=== PATIENT | female | born 2000 | race Caucasian/White ===

== ENCOUNTER 2024-07-17 17:08 | Observation (INO) | payer MEDICAID, OTHER ==
[~2024-07-17] VITALS: Ht 165.1 cm; Wt 72.6 kg
[2024-07-17 19:11] LABS: Basophils # (auto) 0.1 10 ^3/uL (0-0.2); Basophils % (auto) 0.6 % (0.0-2.0); Eosinophils # (auto) 0.3 10 ^3/uL (0-0.8); Eosinophils % (auto) 2.5 % (0.0-7.0); Hematocrit 34.4 % (36.0-46.0); Lymphocytes # (auto) 2.7 10 ^3/uL (0.4-5.4); Lymphocytes % (auto) 25.3 % (10.0-50.0); Monocytes # (auto) 0.9 10 ^3/uL (0-1.3); Monocytes % (auto) 8.8 % (0.0-12.0); Neutrophils # (auto) 6.6 10 ^3/uL (1.6-8.6); Neutrophils % (auto) 62.8 % (37.0-80.0); Nucleated Red Blood Cells % 0.1 %; Platelet Count (auto) 309 10^3/uL (140-450); Red Blood Cells 4.41 10^6/uL (4.0-5.20); Red Cell Distribution Width 14.9 % (11.8-14.3); White Blood Cell 10.5 10^3/uL (4.4-10.8)
[2024-07-17 19:35] LABS: Albumin 3.7 g/dL (3.2-4.8); Alkaline Phosphatase 75 U/L (46-116); Amylase 46 U/L (30-118); Anion Gap 11 (5-15); Aspartate Aminotransferase < 8 U/L (13-40); BUN/Creatinine Ratio 9.6 (10.0-20.0); Bilirubin, Total 0.2 mg/dL (0.2-1.0); Blood Urea Nitrogen 7 mg/dL (9-23); Calcium 9.6 mg/dL (8.7-10.4); Carbon Dioxide 21 mmol/L (20-31); Chloride 108 mmol/L (98-107); Glucose 89 mg/dL (74-106); Lipase 50 U/L (12-53); Potassium 4.8 mmol/L (3.5-5.1); Sodium 140 mmol/L (136-145); Total Protein 6.5 g/dL (5.7-8.2)
[2024-07-17 19:36] LABS: Alanine Aminotransferase < 9 U/L (7-40)
--- NOTE | 2024-07-17 19:55 | DVH ---
EXAM: US GALLBLADDER CLINICAL HISTORY: Abdominal Pain TECHNIQUE: Grayscale and limited color flow doppler ultrasound of the right upper quadrant is perfor med. COMPARISON: None Findings: Liver measures 14.3 cm in length with normal echotexture and contour. No evidence of focal hepatic le sions or intra- or extrahepatic ductal dilatation. Common bile duct measures 0.2 cm in diameter. Norm al hepatopedal flow noted within the portal vein. No perihepatic free fluid is noted. Gallbladder appears within normal limits with gallbladder wall thickness measuring 0.1 cm. There are shadowing calculi. No evidence of biliary sludge or pericholecystic fluid. Negative sonographic Greg y's sign. Pancreas only partially visualized due to overlying bowel gas but is otherwise unremarkable. Right kidney measures 11.3 cm with normal contours, echotexture and cortical thickness. No evidence o f hydronephrosis, calculi, cystic or solid renal lesions. Partially visualized inferior vena cava unremarkable. Impression: 1. No evidence of acute right upper quadrant abnormalities. 2. Cholelithiasis without evidence of acute cholecystitis.
--- NOTE | 2024-07-17 19:59 | DVH ---
EXAM: US OB ULTRASOUND COMP GTR 14 WKS CLINICAL HISTORY: Abdominal Pain No records COMPARISON: None TECHNIQUE: Grayscale, color-flow Doppler, and spectral Doppler ultrasound of the pelvis is performed by transabdominal technique. Findings: Single live intrauterine in breech presentation with heart rate of 147 bpm. Cervical os appears closed and measures 4.1 cm in length. Placenta is posterior in location without evidence o f previa or abruption. Limited evaluation of anatomy Estimated gestational age 25 weeks 5 days based on parameters which include biparietal diameter 6.3 cm, head circumference 23.8 cm, abdominal circumference 21.0 cm, and femur length 4.[address] ratios within normal limits. Estimated weight 840.5 g (1 lb 14 oz). Impression: 1. Single live intrauterine in breech presentation with heart rate of 147 bpm. 2. Estimated gestational age 25 weeks 5 days with estimated date of confinement 10/25/2024.
--- NOTE | 2024-07-19 11:15 | DVHDS2 ---
Physician Discharge Progress N Final Diagnosis: abd pain Operations or Procedures: Operations or Procedures nst,sono Condition on Discharge: Good Disposition: Home Discharge Instructions: Diet: Regular Activity: No Restrictions, As Tolerated Medications: na Follow Up Care: Specialist: 2d Discharge Statement: "Patient was advised to return to the ER or call 911 if any headaches, dizziness, shortness of breath, chest pain, abdominal pain, bleeding, fevers, or worsening of medical condition. Patient was counseled about treatment plan, medications, possible side effects, patientverbalized understanding. All questions were answered to the best of my ability. This discharge took greater then 30 minutes in planning, reviewing documentation, counseling the patient, and discussing with other team members." SEBASTIAN WOODRUFF DO Jul 19, 2024 11:15
== END 2024-07-17 20:33 | disposition home or self-care (01) ==
LOC: LDRP 17:08
PROVIDERS: ADMIT Obstetrics & Gynecology; ATTEND Obstetrics & Gynecology
DX: O26.892 Other specified pregnancy related conditions, second trimester (principal); R10.10 Upper abdominal pain, unspecified; Z3A.26 26 weeks gestation of pregnancy; Z79.899 Other long term (current) drug therapy
CPT/HCPCS: 36415; 59025; 76705; 76805; 80053; 81002; 82150; 83690; 85025; 94760; G0378

== ENCOUNTER 2024-10-04 11:22 | Observation (INO) | payer MEDICAID ==
[~2024-10-04] VITALS: Ht 170.2 cm; Wt 71.7 kg
--- NOTE | 2024-10-04 15:14 | DVHDS2 ---
Physician Discharge Progress N Final Diagnosis: nuchal cord,labor check cramping Operations or Procedures: Operations or Procedures nst,sono 37wks Commentary: Commentary pt seen by sanjuanita Condition on Discharge: Good Disposition: Home Discharge Instructions: Diet: Regular Activity: Light activity Medications: na Follow Up Care: Specialist: 1w Discharge Statement: "Patient was advised to return to the ER or call 911 if any headaches, dizziness, shortness of breath, chest pain, abdominal pain, bleeding, fevers, or worsening of medical condition. Patient was counseled about treatment plan, medications, possible side effects, patientverbalized understanding. All questions were answered to the best of my ability. This discharge took greater then 30 minutes in planning, reviewing documentation, counseling the patient, and discussing with other team members." Visit Coding OBGYN Date of Service: Oct 04, 2024 Billing Provider: SEBASTIAN WOODRUFF DO STEAM STATION SUPERVISOR Common Visit Codes: 24253-JCY/OBS SAME DATE (HIGH) STEAM STATION SUPERVISOR Consultation Codes: [id number] CONSULT <80MIN STEAM STATION SUPERVISOR Procedure Codes: 38114-54- NON-STRESS TEST SEBASTIAN WOODRUFF DO Oct 04, 2024 15:14
== END 2024-10-04 13:33 | disposition home or self-care (01) ==
LOC: LDRP 11:22
PROVIDERS: ADMIT Obstetrics & Gynecology; ATTEND Obstetrics & Gynecology
DX: O69.81X0 Labor and delivery complicated by cord around neck, without compression, not applicable or unspecified (principal); O62.9 Abnormality of forces of labor, unspecified; Z98.890 Other specified postprocedural states; Z79.899 Other long term (current) drug therapy; Z3A.37 37 weeks gestation of pregnancy
CPT/HCPCS: 59025; 81002; 94760; G0378

== ENCOUNTER 2024-10-09 17:58 | Inpatient (IN) | payer MEDICAID ==
[~2024-10-09] VITALS: Ht 165.1 cm; Wt 72.6 kg
--- NOTE | 2024-10-09 21:19 | DVH ---
LIMITED OB ULTRASOUND > 14 WKS: HISTORY: CHRIS, EFW, presentation TECHNIQUE: Multiple real-time grayscale images of the gravid uterus with duplex Doppler color flow an d M-mode spectral analysis. TRANSDUCER: C1-6 COMPARISON: US OB ULTRASOUND COMP GTR 14 WKS on DOS: 07/17/24 FINDINGS: IUP single live fetus at 37 weeks, 1 day based on composite averages of the BPD, head circumference, abdominal circumference and femur length Estimated weight 3120 grams heart rate 163 beats per minute CHRIS 10.83 cm Cervix was not assessed. Cephalic Presentation Unremarkable posterior Placenta without previa or abruption. Single nuchal cord is seen. IMPRESSION: 1. IUP single live fetus at 37 weeks, 1 day AUA corresponding to an [place] of October 29, 2024 2. No acute findings identified.
[2024-10-09] MEDS ORDERED: NALBUPHINE HCL 10 MG/1ml INJECTION IV PRN (22:15)
--- NOTE | 2024-10-09 22:20 | DVHHP2 ---
OB CC & HPI Date Date of Admission: Oct 09, 2024 Patient Identification: : 3 Para: 1 EGA: 38.2 Chief Complaints: Reason for admission: induction of labor, rupture of membranes History of Present Complaints 24y IUP 38.2 wk by stated EDC. Endorse painless leakage of clear, odorless since 10 am today. Had big gush of clear fluid 1 hr before admission Mild contractions only. Denies vaginal bleeding Reports good PNL care, uncomplicated. GBS neg. Amnisure test POSITIVE Past Medical History Cardiac: No pertinent Hx Pulmonary: No pertinent Hx Central Nervous System: No pertinent Hx GI: No pertinent Hx Hemotology/Oncology: No pertinent Hx Hepatobiliary: No pertinent Hx Psychiatric: No pertinent Hx Musculoskeletal: No pertinent Hx Rheumotologic: No pertinent Hx Infectious Disease: No peritnent Hx ENT: No pertinent Hx Renal/: No pertinent Hx Endocrine: No pertinent Hx Dermatology: No pertinent Hx Past Surgical History: No pertinent Hx OB History OB History Care: Good Care Ultrasounds: Normal mid trimester US Obstetrical Complications: None Allergies: Coded Allergies: NO KNOWN ALLERGIES (Unverified , 07/17/24) Home Meds No Active Prescriptions or Reported Meds Family & Social History Family/Social History RPR/VDRL: Negative GBS Status: Negative HBsAG: Negative Review of Systems Constitutional: No symptom reported Ears, Nose, & Throat: No symptom reported Eyes: No symptom reported Pulmonary/Respiratory: No symptom reported Cardiovascular: No symptom reported Gastrointestinal: No symptom reported Genitourinary: No symptom reported Musculoskeletal: No symptom reported Skin: No symptom reported Psychiatric: No symptom reported Endocrine: No symptom reported Hemotologic/Lymphatic: No symptom reported OB Admission Exam Physical Exam HEENT: NCAT Heart: Rhythm Normal Lungs: Clear Abdomen: Gravid Extremities: Normal Reflexes: Normal Pelvic Exam: RN exam FT/Thick/Post VTX by US EFW by US 3100 gm. CHRIS 10cm Heart Rate: 130's Accelerations: Accelerations Present Decelerations: No Decelerations Short Term Variability: Present Director Of Product Marketing Variability: Average (6-25) Contractions on Admission: 6-10 Minutes Apart Intensity: Mild OB Plan Plan Admitting Diagnosis: Term IUP 38+ wk, Early Term Premature rupture of membranes (PROM) GBS negative Category 1 FHR Tracing Plan: Induction Induction Methd: Misoprostol protocol Other Plan: Admit for labor induction due to PROM confirmed by AMNISURE test positive and by history PO Cytotec per protocol Informed consent obtained. Visit Coding OBGYN Date of Service: Oct 09, 2024 Billing Provider: CLARK CABELLO DO ACQUISITION MARKETING COORDINATOR Common Visit Codes: 71249-[id number] OBS CARE (HIGH) CLARK CABELLO DO Oct 09, 2024 22:20
[2024-10-09 23:34] LABS: Alanine Aminotransferase 10 U/L (7-40); Albumin 3.5 g/dL (3.2-4.8); Anion Gap 9 (5-15); Aspartate Aminotransferase 15 U/L (13-40); BUN/Creatinine Ratio 13.5 (10.0-20.0); Calcium 9.1 mg/dL (8.7-10.4); Glucose 81 mg/dL (74-106); Potassium 3.7 mmol/L (3.5-5.1); Sodium 137 mmol/L (136-145)
[2024-10-09] MEDS: miSOPROStol 50 MCG per PRE-CUT 1/2 TAB PO PRN (23:34)
[2024-10-09 23:35] LABS: Basophils # (auto) 0.1 10 ^3/uL (0-0.2); Eosinophils # (auto) 0.2 10 ^3/uL (0-0.8); Eosinophils % (auto) 1.9 % (0.0-7.0); Hematocrit 34.6 % (36.0-46.0); Hemoglobin 10.9 g/dL (12.2-16.2); Lymphocytes # (auto) 3.9 10 ^3/uL (0.4-5.4); Lymphocytes % (auto) 31.8 % (10.0-50.0); Mean Corpuscular Hemoglobin 23.4 pg (28.0-32.0); Mean Corpuscular Hgb Conc. 31.4 g/dL (32.0-36.0); Mean Corpuscular Volume 74.3 fL (80.0-100.0); Monocytes % (auto) 7.8 % (0.0-12.0); Neutrophils # (auto) 7.1 10 ^3/uL (1.6-8.6); Neutrophils % (auto) 57.5 % (37.0-80.0); Nucleated Red Blood Cells % 0.2 %; Platelet Count (auto) 329 10^3/uL (140-450); Red Blood Cells 4.65 10^6/uL (4.0-5.20); Red Cell Distribution Width 22.5 % (11.8-14.3); Total Protein 6.2 g/dL (5.7-8.2); White Blood Cell 12.3 10^3/uL (4.4-10.8)
[2024-10-09 23:36] LABS: Alkaline Phosphatase 161 U/L (46-116); Bilirubin, Total 0.2 mg/dL (0.2-1.0); Blood Urea Nitrogen 7 mg/dL (9-23); Carbon Dioxide 20 mmol/L (20-31); Chloride 108 mmol/L (98-107)
[2024-10-09 23:39] LABS: INR 0.92 (0.9-1.15); Partial Thromboplastin Time 26.5 SEC (24.5-34.5); Prothrombin Time 9.8 sec (9.3-11.8)
[2024-10-09 23:48] LABS: Platelet Estimate Adequate
[2024-10-09 23:49] LABS: Anisocytosis Slight; Hypochromia Moderate; Large Platelets FEW
[2024-10-10 01:51] LABS: Urine Amorphous Crystal FEW /hpf (None Seen); Urine Bacteria FEW /hpf (None Seen); Urine Blood Negative /uL (Negative); Urine Clarity Turbid (Clear); Urine Color Colorless (Yellow); Urine Mucus FEW (None Seen); Urine Protein, UAD Negative (Negative); Urine Specific Gravity 1.015 (1.001-1.035); Urine Squamous Epithelial Cell MOD /hpf (<5); Urine Urobilinogen Normal (Negative); Urine WBC 25 /HPF (0-5)
[2024-10-10 02:04] LABS: Amphetamine Screen, Urine Neg (NEGATIVE); Barbiturate Scree,Urine Neg (NEGATIVE); Benzodiazephine Screen, Urine Neg (NEGATIVE); Cannabinoid Screen, Urine Neg (NEGATIVE); Cocaine Screen, Urine Neg (NEGATIVE); Opiate Scree,Urine Neg (NEGATIVE); Phencyclidine Screen, Urine Neg (NEGATIVE)
[2024-10-10] MEDS: LACTATED RINGER'S 1,000 ML IV SCH (03:43)
--- NOTE | 2024-10-10 05:29 | DVHPN2 ---
OB Labor Progress Note Date and Time Seen Date Seen: Oct 10, 2024 Time Seen: 05:27 Subjective Patient reports: No new complaints Objective Vital Signs Afeb VS stable Monitoring Method Monitoring Method: External Heart Rate Heart Rate Baseline: 130 Heart Rate Variability: Moderate Presence of FHR Accelerations: Yes Presence of FHR Decelerations: Yes Contractions Contractions Frequency: Occasional Contractions Intensity: Mild Membranes Membranes: Ruptured Amniotic Fluid Color: Clear Vaginal Exam Vag Exam Deferred: Yes Medications Medications - Pitocin: No Medication - Epidural: No Lab Results Lab Results Current Medications Medications (Trade) Dose Ordered Sig/Carter Start Time Stop Time Status Last Admin Dose Admin Lactated Ringer's 1,000 ml @ 125 mls/hr Q8H 10/09/24 22:15 10/10/24 05:19 125 MLS/HR Nalbuphine HCl (Nubain) 10 mg Q4HP PRN 10/09/24 22:15 Witch Macrina (Tucks) 1 pad PRN PRN 10/09/24 22:15 Sodium Lauryl Sulfate (Phisoderm) 240 ml PRN PRN 10/09/24 22:15 Benzocaine (Dermoplast) 1 applic PRN PRN 10/09/24 22:15 Misoprostol (Cytotec) 50 mcg Q4HPRN PRN 10/09/24 22:15 10/10/24 03:40 50 MCG Lidocaine HCl (Xylocaine) 20 ml ONCE PRN 10/09/24 22:15 Laboratory Tests Test 10/09/24 23:35 10/09/24 22:27 10/09/24 19:35 Range/Units Urine Color Colorless Yellow Urine Clarity Turbid H Clear Urine pH 7.0 5.0-9.0 Urine Specific [place] 1.015 1.001-1.035 Urine Protein Negative Negative Urine Ketones Negative Negative Urine Blood Negative Negative /uL Urine Nitrite Negative Negative Urine Bilirubin Negative Negative Urine Urobilinogen Normal Negative mg/dL Urine Leukocyte Esterase 3+ Negative /uL Urine RBC 2 0 - 4 /hpf Urine Microscopic WBC 25 H 0-5 /HPF Urine Squamous Epithelial Cells Mod <5 /hpf Urine Amorphous Crystals Few None Seen /hpf Urine Bacteria Few H None Seen /hpf Urine Mucus Few None Seen Urine Glucose Normal Normal mg/dL Urine Opiates Screen Neg NEGATIVE Urine Fentanyl Screen Neg NEGATIVE Urine Barbiturates Screen Neg NEGATIVE Urine Phencyclidine Screen Neg NEGATIVE Urine Amphetamines Screen Neg NEGATIVE Urine Benzodiazepines Screen Neg NEGATIVE Urine Cocaine Screen Neg NEGATIVE Urine Cannabinoids Screen Neg NEGATIVE White Blood Count 12.3 H 4.4-10.8 10^3/uL Red Blood Count 4.65 4.0-5.20 10^6/uL Hemoglobin 10.9 L 12.2-16.2 g/dL Hematocrit 34.6 L 36.0-46.0 % Mean Corpuscular Volume 74.3 L 80.0-100.0 fL Mean Corpuscular Hemoglobin 23.4 L 28.0-32.0 pg Mean Corpuscular Hemoglobin Concent 31.4 L 32.0-36.0 g/dL Red Cell Distribution Width 22.5 H 11.8-14.3 % Platelet Count 329 140-450 10^3/uL Mean Platelet Volume 8.4 6.9-10.8 fL Neutrophils (%) (Auto) 57.5 37.0-80.0 % Lymphocytes (%) (Auto) 31.8 10.0-50.0 % Monocytes (%) (Auto) 7.8 0.0-12.0 % Eosinophils (%) (Auto) 1.9 0.0-7.0 % Basophils (%) (Auto) 1.0 0.0-2.0 % Neutrophils # (Auto) 7.1 1.6-8.6 10 ^3/uL Lymphocytes # (Auto) 3.9 0.4-5.4 10 ^3/uL Monocytes # (Auto) 1.0 0-1.3 10 ^3/uL Eosinophils # (Auto) 0.2 0-0.8 10 ^3/uL Basophils # (Auto) 0.1 0-0.2 10 ^3/uL Nucleated Red Blood Cells 0.2 % Platelet Estimate Adequate Clumped Platelets Few Large Platelets Few Hypochromasia (manual) Moderate Anisocytosis (manual) Slight Microcytosis Moderate Prothrombin Time 9.8 9.3-11.8 sec Prothrombin Time INR 0.92 0.9-1.15 Activated Partial Thromboplast Time 26.5 24.5-34.5 SEC Sodium Level 137 136-145 mmol/L Potassium Level 3.7 3.5-5.1 mmol/L Chloride Level 108 H 98-107 mmol/L Carbon Dioxide Level 20 20-31 mmol/L Anion Gap 9 5-15 Blood Urea Nitrogen 7 L 9-23 mg/dL Creatinine 0.52 L 0.550-1.02 mg/dL Glomerular Filtration Rate Calc 135 >90 mL/min BUN/Creatinine Ratio 13.5 10.0-20.0 Serum Glucose 81 74-106 mg/dL Calcium Level 9.1 8.7-10.4 mg/dL Total Bilirubin 0.2 0.2-1.0 mg/dL Aspartate Amino Transferase (AST) 15 13-40 U/L Alanine Aminotransferase (ALT) 10 7-40 U/L Alkaline Phosphatase 161 H 46-116 U/L Total Protein 6.2 5.7-8.2 g/dL Albumin 3.5 3.2-4.8 g/dL Rapid Plasma Reagin Pending Treponema pallidum Ab (TP-PA) Pending Hepatitis B Surface Antigen Negative Negative Hepatitis C Antibody Negative Negative HIV (1&2) Antibody Negative Negative Rubella IgG Antibody Pending Placental [id number] Positive Assessment Assessment Early Term IUP 38+ wk, PROM GBS neg Plan Plan Continue labor induction with PO Cytotec Start PITOCIN , as needed once early labor achieved Care endorsed to oncoming Noc Technician team Dr. Sanchez/ Eder LYNN Plan discussed with: Patient Visit Coding OBGYN Date of Service: Oct 10, 2024 Billing Provider: CLARK CABELLO DO CONTENT EDITOR Common Visit Codes: [id number] INP/OBS CARE(MOD) CLARK CABELLO DO Oct 10, 2024 05:29
[2024-10-10] MEDS: DERMOPLAST 60ML BOTTLE TOP PRN (05:30)
[2024-10-10] MEDS: PHISODERM TOP SOLN 240ML BTL TOP PRN (05:30)
[2024-10-10] MEDS: WITCH HAZEL-GLYCERIN PAD TOP PRN (05:30)
[2024-10-10] MEDS: LOPERAMIDE HCL 2 MG CAP/TAB PO ONE (07:26)
[2024-10-10] MEDS ORDERED: LIDOCAINE 2%HCL (LOCAL ANESTH.) INJ 20ML MDV ONE (07:38)
[2024-10-10 09:15] VITALS: RESP 18; O2SAT 100
--- NOTE | 2024-10-10 10:25 | LDN2 ---
Labor and Delivery Note Date 10/10/24 Age 24 3 Para now, 2 AB 1 EDC 10/21/24 EGA 38.3 wks Diagnosis Induction of labor for SROM, then Vaginal Delivery: VTX Vacuum Assisted: No Placenta: Spontaneous Sex: Female Weight pending Apgars 8/9 Nuchal Cord Transected: No Amniotic Fluid: Clear Anesthesia Local Episiotomy: No Extension: No Repaired with 3-0 vicryl EBL QBL 250 mL Labs Laboratory Tests 10/09/24 22:27: Hepatitis B Surface Antigen Negative, HIV (1&2) Antibody Negative Blood Bank 10/09/24 22:27: Blood Type B POSITIVE Complications none Conditions stable [place] Taper Helper Somu Comments/Significant Med [facility] At 0735 this 24yo now delivered a viable Female by w/ APGARS 8/9. PASCALE with loose umbilical cord wrapped around body and leg. placed skin to skin on pts chest. Patient had local anesthesia. Cervix/vagina inspected (intact) and second degree perineal laceration present which was repaired with 3-0 vicryl suture. Cord clamped and cut after pulsation ceased. Intact 3-vessel cord placenta delivered spontaneously, Hdz, circummarginate placenta. Pitocin IV bolus started. Placenta sent to pathology. Fundus at U, firm, midline, and light lochia. QBL 250ml. VSS. Count correct x2. Patient to care and baby to couplet care, both stable. Visit Coding OBGYN Date of Service: Oct 10, 2024 Billing Provider: CHINA MATUTE CNM TRANSPLANT SURGEON Common Visit Codes: [id number] INP/OBS CARE(MOD) TRANSPLANT SURGEON Procedure Codes: 40038-KTN DEL INCLUDING ISAC TOUSSAINT STUDENTMDW Oct 10, 2024 10:25
[2024-10-10] MEDS: LACT. RINGERS/OXYTOCIN 20UNITS 500 ML IV ONE ×2 (10:48→10:49)
[2024-10-10] MEDS: LIDOCAINE 2%HCL (LOCAL ANESTH.) INJ 20ML MDV IJ PRN (10:50)
[2024-10-10 11:00] VITALS: BP 111/67; PULSE 77; RESP 18; TEMP 98.5; O2SAT 99
[2024-10-10 15:00] VITALS: BP 109/60; PULSE 89; RESP 18; TEMP 98; O2SAT 97
[2024-10-10 18:40] VITALS: BP 100/63; PULSE 90; RESP 18; TEMP 98.3; O2SAT 98
[2024-10-10] MEDS ORDERED: ACETAMINOPHEN 325 MG TAB PO PRN (19:45)
[2024-10-10] MEDS: IBUPROFEN 600 MG TAB PO PRN (19:47)
[2024-10-10] MEDS: DOCUSATE SOD 100 MG CAP PO SCH (21:52)
[2024-10-10 23:15] VITALS: BP 111/71; PULSE 81; RESP 20; TEMP 98.7; O2SAT 100
[2024-10-11] MEDS ORDERED: DOCU-265 PO (00:08)
[2024-10-11] MEDS ORDERED: IBU600T PO (00:08)
[2024-10-11] MEDS ORDERED: PREN-96 PO (00:08)
[2024-10-11 03:00] VITALS: BP 119/54; PULSE 82; RESP 20; TEMP 98.6; O2SAT 97
[2024-10-11] MEDS: LACT. RINGERS/OXYTOCIN 20UNITS 1,000 ML IV ONE (06:30)
[2024-10-11 07:00] VITALS: BP 100/66; PULSE 77; RESP 18; TEMP 98.3; O2SAT 95
[2024-10-11 08:07] LABS: RPR Non Reactive (Non Reactive)
[2024-10-11 09:17] LABS: Basophils # (auto) 0.1 10 ^3/uL (0-0.2); Eosinophils # (auto) 0.2 10 ^3/uL (0-0.8); Eosinophils % (auto) 1.4 % (0.0-7.0); Mean Corpuscular Hgb Conc. 30.9 g/dL (32.0-36.0); Neutrophils # (auto) 8.5 10 ^3/uL (1.6-8.6); Nucleated Red Blood Cells % 0.1 %
[2024-10-11 09:19] LABS: Basophils % (auto) 0.8 % (0.0-2.0); Hematocrit 34.1 % (36.0-46.0); Hemoglobin 10.6 g/dL (12.2-16.2); Lymphocytes # (auto) 2.1 10 ^3/uL (0.4-5.4); Lymphocytes % (auto) 18.4 % (10.0-50.0); Mean Corpuscular Volume 74.5 fL (80.0-100.0); Monocytes # (auto) 0.8 10 ^3/uL (0-1.3); Monocytes % (auto) 6.7 % (0.0-12.0); Neutrophils % (auto) 72.7 % (37.0-80.0); Platelet Count (auto) 292 10^3/uL (140-450); Red Blood Cells 4.58 10^6/uL (4.0-5.20); Red Cell Distribution Width 22.4 % (11.8-14.3); White Blood Cell 11.6 10^3/uL (4.4-10.8)
[2024-10-11] MEDS: PRENATAL VITAMIN TAB PO SCH (10:00)
[2024-10-11 10:07] LABS: Rubella Antibodies, IgG 1.27 index (Immune >0.99)
[2024-10-11] MEDS ORDERED: FER325T PO (10:09)
--- NOTE | 2024-10-11 19:45 | DVHPN2 ---
Progress Note Date Seen: Oct 11, 2024 Subjective S: bleeding is less, eating food without issues, denies lightheaded/dizziness, pain well controlled with oral medications, no concerns with urinating, passing flatus, no BM yet, ambulating well, well vital signs Vital Sign Date Time Temp Pulse Resp B/P (MAP) Pulse Ox O2 Delivery O2 Flow Rate FiO2 10/11/24 07:00 Room Air 10/11/24 07:00 98.3 77 18 100/66 (77) 95 98.3 Total Intake and Output 10/10/24 10/10/24 10/11/24 15:00 23:00 07:00 Output Total 900 ml 350 ml Balance -900 ml -350 ml medications SEE MAR laboratory and microbiology Laboratory Tests 10/11/24 08:34 10/09/24 22:27 Test 10/09/24 22:27 Range/Units Serum Glucose 81 74-106 mg/dL Objective O: VSS Chest: heart sounds normal and lung sounds clear bilaterally Abd: soft, non-tender, fundus at U/firm/midline, active bowel sounds, no rebound or guarding Perineum: sutures intact, edges well approximated, no erythema/edema noted Ext: Non-tender, No edema, 2+ BLE DTRs Lochia: minimal See lab results Problems(with codes): (1) Second degree perineal laceration during delivery (2) Iron deficiency anemia of mother during (3) (normal spontaneous vaginal delivery) Assessment/Plan A: 24yo now PPD#1 s/p Anemia Rh+ Rubella Immune P: D/C home today Rx sent to pharmacy precautions and preeclampsia warning signs reviewed F/U with [facility] office in 2 weeks Plan discussed with: Patient, Spouse Visit Coding OBGYN Date of Service: Oct 11, 2024 Billing Provider: CHINA MATUTE CNM STARCH COOKER Common Visit Codes: [id number] INP/OBS CARE(MOD) CHINA MATUTE CNM Oct 11, 2024 19:45
--- NOTE | 2024-10-11 19:45 | DVHDS2 ---
Obstetrics Discharge Summary Obstetrics Discharge Summary Date of Admission: Oct 09, 2024 Date of Discharge: Oct 11, 2024 Reason For Admission: Induction of Labor, PROM Procedures: NST, Ultrasound Intrapartum Procedures: Spontaneous vaginal deliv Procedures: Hct/date: (10/11/24), Hgb/date: (10/11/24) Operative Complicat: Laceration (second degree Perineal) Discharge Diagnosis: Term -Delivered Discharge Information: Activity (as tolerated, no heavy lifting and nothing in the vagina for 6 weeks), Diet (Routine), Medications (Rx sent), Instructions (Routine), Discharge to (Home), Accompanied by (partner), Discarge date (10/11/24) Visit Coding OBGYN Date of Service: Oct 11, 2024 Billing Provider: CHINA MATUTE CNM HYDRO ELECTRIC STATION OPERATOR Common Visit Codes: 93759-TSR/OBS DISCH DAY <30MIN CHINA MATUTE CNM Oct 11, 2024 19:45
== END 2024-10-11 12:33 | disposition home or self-care (01) | DRG 560 ==
LOC: LDRP 17:58 → OBSVTOIN 21:30 → LDRP 21:30
PROVIDERS: ADMIT Obstetrics & Gynecology; ATTEND Obstetrics & Gynecology
PROC: 10E0XZZ Delivery of Products of Conception, External Approach (ICD-10-PCS; principal; 2024-10-10)
PROC: 3E0DXGC Introduction of Other Therapeutic Substance into Mouth and Pharynx, External Approach (ICD-10-PCS; 2024-10-10)
PROC: 0KQM0ZZ Repair Perineum Muscle, Open Approach (ICD-10-PCS; 2024-10-10)
DX: O42.02 Full-term premature rupture of membranes, onset of labor within 24 hours of rupture (principal); Z37.0 Single live birth; D50.9 Iron deficiency anemia, unspecified; O70.1 Second degree perineal laceration during delivery; Z3A.38 38 weeks gestation of pregnancy; O90.81 Anemia of the puerperium
CPT/HCPCS: 36415; 59025; 59409; 76805; 80053; 80307; 81001; 81002; 84112; 85025; 85610; 85730; 86592; 86703; 86762; 86780; 86803; 86850; 86900; 86901; 87340; 94760; 96360; 96361; 96366; G0378; J2590